=== PATIENT | female | born 1980 | race Caucasian/White ===

== ENCOUNTER 2021-06-22 13:22 | Outpatient (CLI) | payer BC, OTHER | END 2021-06-22 13:23 | disposition home or self-care (01) | LOC: CSHMRI 13:22 | PROVIDERS: ATTEND Orthopaedic Surgery | DX: S46.011A Strain of muscle(s) and tendon(s) of the rotator cuff of right shoulder, initial encounter (principal); S43.431A Superior glenoid labrum lesion of right shoulder, initial encounter; M89.511 Osteolysis, right shoulder ==

== ENCOUNTER 2023-04-07 08:16 | Day surgery (SDC) | payer BC, OTHER ==
[2023-04-07] MEDS ORDERED: Iopamidol-M 300 61% 15 ML VIAL ONE (09:44)
[2023-04-07 09:45] VITALS: BP 152/96; TEMP 97.8
== END 2023-04-07 10:25 | disposition home or self-care (01) ==
LOC: CSHRAD 08:16
PROVIDERS: ATTEND Nurse Practitioner Family
DX: M47.22 Other spondylosis with radiculopathy, cervical region (principal); M25.511 Pain in right shoulder; E11.9 Type 2 diabetes mellitus without complications; I10 Essential (primary) hypertension; E78.00 Pure hypercholesterolemia, unspecified; F41.9 Anxiety disorder, unspecified; Z90.710 Acquired absence of both cervix and uterus; Z79.899 Other long term (current) drug therapy; Z79.4 Long term (current) use of insulin
CPT/HCPCS: 62302; 72126

== ENCOUNTER 2023-04-09 10:50 | Emergency (ER) | payer BC, OTHER ==
[2023-04-09] MEDS ORDERED: Ketorolac Tromethamine 30 MG/ML VIAL ONE (11:49)
[2023-04-09] MEDS ORDERED: Prochlorperazine 10 MG/2 ML VIAL ONE (11:49)
[2023-04-09] MEDS ORDERED: Acetaminophen 500 MG TAB ONE (11:49)
[2023-04-09] MEDS ORDERED: Magnesium 2 GM/50 ML BAG (IN WATER) ONE (11:50)
== END 2023-04-09 13:35 | disposition home or self-care (01) ==
LOC: CSHERS 10:50
DX: R51.9 Headache, unspecified (principal); R11.0 Nausea; I10 Essential (primary) hypertension; E11.9 Type 2 diabetes mellitus without complications
CPT/HCPCS: 36416; 70450; 96365; 96375; J0780; J1885; J3475

== ENCOUNTER 2024-03-22 14:09 | Outpatient (CLI) | payer BC, OTHER | END 2024-03-22 14:10 | disposition home or self-care (01) | LOC: CSHDTY/OP 14:09 | PROVIDERS: ATTEND Surgery | DX: E66.01 Morbid (severe) obesity due to excess calories (principal) | CPT/HCPCS: 97802 ==

== ENCOUNTER 2024-04-19 11:08 | Outpatient (CLI) | payer BC, OTHER | END 2024-04-19 11:09 | disposition home or self-care (01) | LOC: CSHDTY/OP 11:08 | PROVIDERS: ATTEND Surgery | DX: E66.01 Morbid (severe) obesity due to excess calories (principal) | CPT/HCPCS: 97802 ==

== ENCOUNTER 2024-05-31 09:33 | Outpatient (CLI) | payer BC, OTHER | END 2024-05-31 09:34 | disposition home or self-care (01) | LOC: CSHDTY/OP 09:33 | PROVIDERS: ATTEND Surgery | DX: E66.01 Morbid (severe) obesity due to excess calories (principal) | CPT/HCPCS: 97802 ==